=== PATIENT | male | born 1940 | race Caucasian/White ===

== ENCOUNTER 2018-09-02 11:48 | Observation (INO) | payer MEDICARE, OTHER ==
[2018-09-02 12:10] LABS: #Eosinphils 0.1 thou/uL (0.0-0.7); #Lymphocytes 2.3 thou/uL (1.20-3.40); #Monocytes 0.4 thou/uL (0.11-0.59); #Neutrophils 3.3 thou/uL (1.40-6.50); %Basophils 0.3 % (0.0-1.0); %Eosinophils 2.2 % (0.0-10.0); %Neutrophils 53.5 % (42.0-75.0); Hemoglobin 13.4 g/dL (14.0-18.0); Mean Corpuscular HGB CONC 33.5 g/dL (32.0-36.0); Mean Corpuscular Hemoglobin 31.1 pg (27.0-31.0); Mean Platelet Volume 6.7 fL (7.4-10.4); Platelet Count 217 thou/uL (130-400); RBC Distribution Width 12.1 % (11.5-14.5); White Blood Cell (WBC) Count 6.2 thou/uL (4.8-10.8)
--- NOTE | 2018-09-02 12:19 | RAD ---
RADIOGRAPH CHEST 1 VIEW: DATE: 09/02/2018 HISTORY: 77-year-old male with chest pain FINDINGS: There are no airspace densities, pulmonary edema, pneumothorax, or cardiomegaly. The lateral costophr enic angles are sharp. IMPRESSION: No acute cardiopulmonary findings.
[2018-09-02 12:31] LABS: ALT (SGPT) 18 U/L (8-55); AST (SGOT) 14 U/L (5-34); Albumin 4.6 g/dL (3.4-4.8); Alkaline Phosphatase 91 U/L (40-150); Anion Gap 13 mmol/L (10-20); BUN (Urea Nitrogen) 26 mg/dL (8.4-25.7); Bilirubin, Total 0.7 mg/dL (0.2-1.2); CK (CPK) 126 U/L (30-200); Calc. Creatinine Clearance 0 mL/min (70-130); Calcium 9.6 mg/dL (7.8-10.44); Carbon Dioxide 25 mmol/L (23-31); Chloride 106 mmol/L (98-107); Estimated GFR-MDRD 66; Globulin 2.8 g/dL (2.4-3.5); Glucose 97 mg/dL (83-110); Lipase 37 U/L (8-78); Potassium 4.5 mmol/L (3.5-5.1); Protein, Total 7.4 g/dL (5.8-8.1); Sodium 139 mmol/L (136-145)
[2018-09-02] MEDS ORDERED: Aspirin Chewable 81 MG TAB ONE (14:49)
[2018-09-02] MEDS ORDERED: Ondansetron PF 4 MG/2 ML Vial IVP PRN (15:43)
[2018-09-02] MEDS ORDERED: Ondansetron ODT 4 MG TAB SL PRN (15:43)
[2018-09-02] MEDS ORDERED: Acetaminophen 325 MG TAB PO PRN (15:43)
[2018-09-02 15:52] VITALS: BMI 24.7
[2018-09-02 16:31] LABS: Troponin I Less than 0.010 ng/mL (< 0.028)
[2018-09-02] MEDS ORDERED: Acetaminophen 500 MG TAB PO PRN (16:42)
[2018-09-02 18:48] LABS: Troponin I Less than 0.010 ng/mL (< 0.028)
--- NOTE | 2018-09-02 19:51 | HP ---
CHIEF COMPLAINT: Chest pain. HISTORY OF PRESENT ILLNESS: Mr. Holbrook is a very pleasant 77-year-old male with past medical history significant for hypertension, hyperlipidemia, coronary artery disease status post stenting of the RCA [place] [address] Madsen, who presented to the hospital with complaints of chest pain. 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 He describes it as a pressure with radiation into both arms. It also seemed to radiate into the neck. Associated symptoms included lightheadedness. The patient was outside and was known to already be sweating profusely. This discomfort lasted for about 15 minutes. His drove him to the nearest fireconneaut for evaluation. They performed an EKG, but recommended evaluation in the emergency department. The patient presented to the [facility] for further evaluation. On arrival to our facility, he had an EKG, which showed an incomplete right bundle-branch block. This was a known finding. His first two troponins have been negative. His chest pain has completely resolved. He is resting comfortably in his room with family around, eating dinner. REVIEW OF SYSTEMS: A 12-point review of systems performed and is negative except that stated above. PAST MEDICAL HISTORY: Coronary artery disease status post stent in 2008, hypertension, hyperlipidemia, history of esophageal stricture status post dilatation by Dr. Faby harvey, GERD, nephrolithiasis. PAST SURGICAL HISTORY: Status post stenting of the RCA in October of [address] Madsen, status post ORIF after right femoral fracture. Appendectomy. Esophageal dilatation. ALLERGIES: TERA INHIBITOR, WHICH CAUSES COUGH; AND TRICOR. HOME MEDICATIONS: 1. Irbesartan 300 mg one tablet p.o. q.a.m. 2. Levothyroxine 125 mcg one daily. 3. Omeprazole 20 mg p.o. b.i.d. 4. Crestor 40 mg one p.o. q.p.m. SOCIAL HISTORY: The patient lives at home with his . He is quite active. 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 He has a remote history of smoking. He denies any alcohol or illicit drug use. FAMILY HISTORY: Noncontributory. PHYSICAL EXAMINATION: VITAL SIGNS: Blood pressure 152/81, pulse is 55, O2 saturation is 100% on room air, and respirations 12. GENERAL: This is a well-appearing gentleman, resting in the bed. No acute distress. HEENT: Head is atraumatic and normocephalic. Mucous membranes are moist. NECK: Supple. No lymphadenopathy. Trachea is midline. CV: S1 and S2, regular rhythm, mildly bradycardic. LUNGS: Regular respiratory rate and pattern. Clear to auscultation bilaterally. ABDOMEN: Positive bowel sounds. Soft, nontender. EXTREMITIES: No edema. SKIN: Warm and dry. No rashes. NEUROLOGIC: Cranial nerves 2 through 12 are grossly intact. The patient is nonfocal. LABORATORY DATA: WBC 6.2, hemoglobin 13.4, hematocrit 39.9, platelet is 217. Sodium 139, potassium 4.5, chloride 106, BUN 26, creatinine 1.08. AST, ALT, alkaline phosphatase, all within normal limits. Creatine kinase 126. Troponin is negative x2. Lipase is 37. ASSESSMENT: 1. Chest pain consistent with angina, resolved, troponin negative x2. 2. Coronary artery disease, status post stent of the RCA [place] [address] Madsen. 3. Hypothyroidism. 4. Hypertension. 5. Hyperlipidemia. 6. Gastroesophageal reflux disease. PLAN: At this time, we will risk stratify the patient with a nuclear stress test. It has been three years since his last nuclear stress test, which was performed in this hospital in 2016. We will start the patient on baby aspirin, which he has not been taking. We will continue his irbesartan and Crestor. Continue his home dose of levothyroxine. We will obtain a fasting lipid panel in the morning. Further recommendations based on findings of stress test to be performed tomorrow. Job ID: [id number] [facility]
[2018-09-02] MEDS ORDERED: Rosuvastatin 20 MG TAB PO SCH (21:00)
[2018-09-03 05:33] LABS: Cardiac Risk 3.9 (Less than 4.5)
[2018-09-03] MEDS ORDERED: Levothyroxine Sodium 125 MCG TAB PO SCH (06:00)
[2018-09-03] MEDS ORDERED: Prevnar 13-Val Conj/PF 0.5 ML SYRINGE IM ONE (09:00)
[2018-09-03] MEDS ORDERED: Aspirin Chewable 81 MG TAB PO SCH (09:00)
--- NOTE | 2018-09-03 11:45 | NM ---
NUCLEAR MEDICINE CARDIAC MYOCARDIAL PERFUSION SPECT EJECTION FRACTION STUDY WALL MOTION CINE: DATE: 09/03/2018 HISTORY: 77 year old male with hypertension, coronary artery disease, dyslipidemia, and tobacco use, presents with acute chest pain. TECHNIQUE: Number of days: 1 Rest study: Technetium 99m-sestamibi (Cardiolite) dose: 10.1 mCi Exercise stress: Treadmill Stress study: Technetium 99m-sestamibi (Cardiolite) dose: 29.0 mCi FINDINGS: CARDIAC (MYOCARDIAL PERFUSION) SPECT Distribution of sestamibi is homogeneous throughout the left ventricle, with no fixed or reversible m yocardial perfusion defects. EJECTION FRACTION STUDY Left ventricular EF = 72 % WALL MOTION CINE The left ventricular wall motion is normal. There is normal systolic wall thickening. IMPRESSION: Normal.
[2018-09-03 12:22] VITALS: BP 134/81; TEMP 98.5
--- NOTE | 2018-09-03 12:57 | STRESS ---
Acquisition Time: 2018-09-03 09:59:34 Total Exercise Time: 00:08:00 Test Indications: CHEST PAIN Medications: Protocol: JOSSUE Max HR: 122 BPM 84% of Pred: 144 BPM Max BP: 154/080 mmHG Max Work Load: 10.1 METS THE PATIENT EXERCISED ON THE TREADMILL FOR 8:00 ON THE JOSSUE PROTOCOLPEAK HEART JBPZ=033 BPM AND [employer] HEART RATE = [address] DEPRESSION. HE DID NOT DEVELOP CHEST PAIN. NEGATIVE EXERCISE TREADMILL TEST. AWAIT NUCLEAR IMAGES FOR DEFINITIVE DIAGNOSIS. Confirmed by LEXIE REEVES ([id number]), market editor LEONOR FORREST ([id number]) on 09/03/2018 12:56:50 PM Referred By: Confirmed By:LEXIE REEVES
--- NOTE | 2018-09-04 00:48 | DIS ---
DATE OF ADMISSION: 09/02/2018 DATE OF DISCHARGE: 09/03/2018 CHIEF COMPLAINT ON ADMISSION: Chest pain. DISCHARGE DIAGNOSES: 1. Chest pain, acute coronary syndrome ruled out, MPI negative for reversible ischemia and showing normal EF. 2. Coronary artery disease status post stent to the RCA [place] [address] Madsen. 3. Hypothyroidism. 4. Hypertension. 5. Hyperlipidemia. 6. Gastroesophageal reflux disease. BRIEF HOSPITAL COURSE: The patient is a very pleasant 77-year-old gentleman with past medical history significant for coronary artery disease status post stenting of the RCA with Dr. Madsen in 2008, hypertension, hyperlipidemia, who presented to the hospital with another episode of chest pain. 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 He was out in the heat, already sweating profusely when his chest discomfort began. He describes it as a pressure, which radiated into both arms. He did have some lightheadedness. He presented to the emergency department for further workup and treatment. EKG showed incomplete right bundle-branch block which is known finding for the patient. His serial troponins were negative x3. He underwent nuclear stress test, which showed normal left ventricular systolic function, no evidence of reversible ischemia. His presenting symptoms have completely resolved. He feels well today. He admits to not taking aspirin daily. Laboratory data also is significant for mildly elevated triglycerides in the 160s. DISCHARGE DISPOSITION: Home. DISCHARGE CONDITION: Stable. FOLLOWUP AND DISCHARGE INSTRUCTIONS: I have advised the patient that he needs to follow up somewhat regularly with his chief payroll clerk, Dr. Madsen, given his known history of disease. The patient will continue his statin and I will initiate some fish oil for him given his mildly elevated triglycerides. I have advised him to take his aspirin daily. He will continue risk factor modification and follow up with his primary care physician, Dr. Bowman, as well. Workup here has been negative, but I have advised the patient given his history that if his symptoms do return, he would need to return back to the emergency room or call his chief payroll clerk if the symptoms are not severe. All questions answered. The patient will be discharged home in good condition today. Job ID: [id number]
--- NOTE | 2018-09-09 11:03 | EKG ---
Test Reason : Blood Pressure : / mmHG Vent. Rate : 067 BPM Atrial Rate : 067 BPM P-R Int : 146 ms QRS Dur : 128 ms QT Int : 400 ms P-R-T Axes : 052 084 045 degrees QTc Int : 422 ms Normal sinus rhythm Right bundle branch block Abnormal ECG Confirmed by ADI HOOD ([id number]), editor magazine TYRONE ELLIS ([id number]) on 09/09/2018 11:03:26 AM Referred By: Confirmed By:ADI HOOD
== END 2018-09-03 12:53 | disposition home or self-care (01) ==
LOC: ERS 11:48 → 2SW 13:59
PROVIDERS: ADMIT Internal Medicine; ATTEND Internal Medicine
DX: R07.89 Other chest pain (principal); R61 Generalized hyperhidrosis; R42 Dizziness and giddiness; I10 Essential (primary) hypertension; E78.5 Hyperlipidemia, unspecified; I25.10 Atherosclerotic heart disease of native coronary artery without angina pectoris; E03.9 Hypothyroidism, unspecified; K21.9 Gastro-esophageal reflux disease without esophagitis; Z87.891 Personal history of nicotine dependence; Z79.899 Other long term (current) drug therapy; Z88.0 Allergy status to penicillin; Z88.8 Allergy status to other drugs, medicaments and biological substances; Z91.041 Radiographic dye allergy status; Z95.5 Presence of coronary angioplasty implant and graft
CPT/HCPCS: 36415; 71045; 78452; 80053; 80061; 82550; 83690; 84484; 85025; 93005; 93017; 94760; A9500; G0378

== ENCOUNTER 2019-08-06 11:57 | Emergency (ER) | payer MEDICARE, OTHER ==
[2019-08-06 12:55] LABS: #Basophils 0.2 thou/uL (0.0-0.2); #Lymphocytes 1.2 thou/uL (1.20-3.40); #Monocytes 0.8 thou/uL (0.11-0.59); #Neutrophils 5.7 thou/uL (1.40-6.50); %Basophils 2.2 % (0.0-1.0); %Eosinophils 0.6 % (0.0-10.0); %Lymphocytes 15.3 % (21.0-51.0); %Monocytes 10.2 % (0.0-10.0); %Neutrophils 71.7 % (42.0-75.0); Hemoglobin 12.3 g/dL (14.0-18.0); Mean Corpuscular HGB CONC 34.7 g/dL (32.0-36.0); Mean Corpuscular Hemoglobin 32.1 pg (27.0-31.0); Mean Corpuscular Volume 92.4 fL (78.0-98.0); Platelet Count 226 thou/uL (130-400); RBC Distribution Width 11.8 % (11.5-14.5); Red Blood Cell (RBC) Count 3.83 mill/uL (4.70-6.10); White Blood Cell (WBC) Count 7.9 thou/uL (4.8-10.8)
[2019-08-06 13:42] LABS: ALT (SGPT) 16 U/L (8-55); AST (SGOT) 15 U/L (5-34); Albumin 4.1 g/dL (3.4-4.8); Alkaline Phosphatase 107 U/L (40-110); Anion Gap 12 mmol/L (10-20); BUN (Urea Nitrogen) 28 mg/dL (8.4-25.7); Bilirubin, Total 0.9 mg/dL (0.2-1.2); Calc. Creatinine Clearance 0 mL/min (70-130); Calcium 9.3 mg/dL (7.8-10.44); Carbon Dioxide 24 mmol/L (23-31); Chloride 102 mmol/L (98-107); Estimated GFR-MDRD 55; Globulin 3.3 g/dL (2.4-3.5); Glucose 113 mg/dL (83-110); Potassium 4.8 mmol/L (3.5-5.1); Protein, Total 7.4 g/dL (5.8-8.1); Sodium 133 mmol/L (136-145)
[2019-08-06 13:55] LABS: Bacteria/HPF 2+ HPF (None Seen); Bilirubin Negative (Negative); Blood, Urine 1+ (Negative); Clarity Turbid (Clear); Glucose, Urine (Dipstick) Normal (Negative); Leukocyte 500 Leu/uL (Negative); Nitrite Negative (Negative); Protein, Urine (Dipstick) 70 mg/dL (Neg-Trace); RBC/HPF 0-3 HPF (0-3); Squamous Epithelial 0-3 HPF (0-3); WBC/HPF Greater than 50 HPF (0-3)
== END 2019-08-06 14:25 | disposition home or self-care (01) ==
LOC: ERS 11:57
DX: N30.90 Cystitis, unspecified without hematuria (principal); I25.10 Atherosclerotic heart disease of native coronary artery without angina pectoris; E78.5 Hyperlipidemia, unspecified; E78.00 Pure hypercholesterolemia, unspecified; I10 Essential (primary) hypertension; Z79.899 Other long term (current) drug therapy
CPT/HCPCS: 36415; 80053; 81003; 81015; 83605; 85025; 87040; 87077; 87086; 87186; 99283

== ENCOUNTER 2020-12-10 09:19 | Outpatient (CLI) | payer OTHER ==
[2020-12-11] MEDS ORDERED: Iopamidol 370 76% 100 ML VIAL ONE (15:51)
== END 2020-12-10 09:20 | disposition home or self-care (01) ==
LOC: CT 09:19
PROVIDERS: ATTEND Internal Medicine Gastroenterology
DX: R07.0 Pain in throat (principal); J35.1 Hypertrophy of tonsils
CPT/HCPCS: 70491; Q9967

== ENCOUNTER 2023-01-03 05:44 | Day surgery (SDC) | payer MEDICARE ==
[2022-12-31 11:48] VITALS: BMI 24.3
[2023-01-03] MEDS ORDERED: Bacitracin Zinc Ointment 30 gm TUBE ONE (06:45)
[2023-01-03] MEDS ORDERED: Bupivacaine 0.25% HCL 30 ML VIAL ONE (06:45)
[2023-01-03] MEDS ORDERED: EPINEPHrine 1 MG/ML VIAL ONE (06:45)
[2023-01-03 06:46] LABS: #Eosinphils 0.2 thou/uL (0.0-0.7); #Monocytes 0.4 thou/uL (0.11-0.59); #Neutrophils 2.2 thou/uL (1.40-6.50); %Basophils 0.7 % (0.0-1.0); %Eosinophils 3.8 % (0.0-10.0); %Lymphocytes 37.8 % (21.0-51.0); %Monocytes 8.7 % (0.0-10.0); Hematocrit 38.7 % (42.0-52.0); Hemoglobin 12.5 g/dL (14.0-18.0); Mean Corpuscular HGB CONC 32.3 g/dL (32.0-36.0); Mean Corpuscular Hemoglobin 30.2 pg (27.0-31.0); Mean Corpuscular Volume 93.5 fl (78.0-98.0); Mean Platelet Volume 9.3 fL (7.4-10.4); Platelet Count 174 10x3/uL (130-400); RBC Distribution Width 13.2 % (11.5-14.5); Red Blood Cell (RBC) Count 4.14 mill/uL (4.70-6.10); White Blood Cell (WBC) Count 4.5 10x3/uL (4.8-10.8)
[2023-01-03] MEDS ORDERED: Heparin 5,000 UNITS/ML VIAL ONE (06:51)
[2023-01-03] MEDS ORDERED: SUGAMMADEX SODIUM 200 MG/2 ML VIAL ONE (07:03)
[2023-01-03] MEDS ORDERED: fentaNYL PF 100 MCG/2 ML SYRINGE ONE (07:04)
[2023-01-03 07:12] LABS: Anion Gap 11 mmol/L (10-20); BUN (Urea Nitrogen) 22 mg/dL (8.4-25.7); Calc. Creatinine Clearance 54 mL/min (70-130); Calcium 9.5 mg/dL (7.8-10.44); Carbon Dioxide 26 mmol/L (23-31); Chloride 107 mmol/L (98-107); Estimated GFR 63; Glucose 92 mg/dL (83-110); Potassium 4.6 mmol/L (3.5-5.1); Sodium 139 mmol/L (136-145)
[2023-01-03] MEDS ORDERED: Clindamycin/D5W 900 mg/50 ml Premix Bag ONE (07:45)
[2023-01-03] MEDS ORDERED: ePHEDrine Sulfate 50 MG/10 ML VIAL ONE (07:49)
[2023-01-03] MEDS ORDERED: Lidocaine 1% PF 5 ML VIAL ONE (07:49)
[2023-01-03] MEDS ORDERED: PROPOFOL 200 MG/20 ML VIAL ONE (07:49)
[2023-01-03] MEDS ORDERED: Dexamethasone 20 MG/5 ML VIAL ONE (07:49)
[2023-01-03] MEDS ORDERED: Ondansetron PF 4 MG/2 ML Vial ONE (07:49)
[2023-01-03] MEDS ORDERED: PHENYLEPHRINE-NS 100 MCG/ML 10 ML SYRINGE ONE (07:49)
== END 2023-01-03 12:30 | disposition home or self-care (01) ==
LOC: SDC 05:44
PROVIDERS: ATTEND Plastic Surgery
PROC: 09BK0ZZ Excision of Nasal Mucosa and Soft Tissue, Open Approach (ICD-10-PCS; principal; 2023-01-03)
PROC: 0HB1XZZ Excision of Face Skin, External Approach (ICD-10-PCS; 2023-01-03)
DX: C44.319 Basal cell carcinoma of skin of other parts of face (principal); C44.311 Basal cell carcinoma of skin of nose; I10 Essential (primary) hypertension; Z88.0 Allergy status to penicillin; Z88.8 Allergy status to other drugs, medicaments and biological substances; Z91.041 Radiographic dye allergy status
CPT/HCPCS: 11642 ×2; 11643; 15731; 80048; 85025; 93005; J0171; 88305; 88331; 88332; 93010; J1100; J1644; J2405; J2704; J3490; S0020

== ENCOUNTER 2025-01-07 12:11 | Outpatient (CLI) | payer MEDICARE, OTHER ==
[2025-01-07 13:28] LABS: #Basophils 0.03 10x3/uL (0.0-0.2); #Eosinophils 0.22 10x3/uL (0.0-0.7); #Monocytes 0.52 10x3/uL (0.11-0.59); #Neutrophils 3.02 10x3/uL (1.40-6.50); %Basophils 0.5 % (0.0-1.0); %Eosinophils 3.5 % (0.0-10.0); %Lymphocytes 39.5 % (21.0-51.0); %Monocytes 8.3 % (0.0-10.0); %Neutrophils 48.0 % (42.0-75.0); Hematocrit 38.6 % (42.0-52.0); Hemoglobin 12.8 g/dL (14.0-18.0); Mean Corpuscular Hemoglobin 30.5 pg (27.0-31.0); Mean Corpuscular Volume 92.1 fL (78.0-98.0); Platelet Count 201 10x3/uL (130-400); Red Blood Cell (RBC) Count 4.19 mill/uL (4.70-6.10); White Blood Cell (WBC) Count 6.28 10x3/uL (4.8-10.8)
[2025-01-07 13:32] LABS: Bacteria/HPF None Seen HPF (None Seen); Glucose, Urine (Dipstick) Normal (Negative); Leukocyte Negative Leu/uL (Negative); Protein, Urine (Dipstick) Negative (Neg-Trace); RBC/HPF 0-3 HPF (0-3); Specific Gravity, Urine 1.017 (1.002-1.036); WBC/HPF 0-3 HPF (0-3)
[2025-01-07 13:46] LABS: PTT 31.7 sec (22.9-36.1)
[2025-01-07 13:47] LABS: INR-International Normal Ratio 1.0; Prothrombin Time 13.5 sec (12.0-14.7)
[2025-01-07 14:03] LABS: Anion Gap 14 mmol/L (10-20); BUN (Urea Nitrogen) 17 mg/dL (8.4-25.7); Calc. Creatinine Clearance 0 mL/min (70-130); Calcium 9.5 mg/dL (7.8-10.44); Carbon Dioxide 25 mmol/L (23-31); Chloride 106 mmol/L (98-107); Glucose 81 mg/dL (83-110); Potassium 4.7 mmol/L (3.5-5.1); Sodium 140 mmol/L (136-145)
== END 2025-01-07 12:12 | disposition home or self-care (01) ==
LOC: LABBT 12:11
PROVIDERS: ATTEND Urology
DX: Z01.818 Encounter for other preprocedural examination (principal); N40.1 Benign prostatic hyperplasia with lower urinary tract symptoms; R39.14 Feeling of incomplete bladder emptying; Z95.5 Presence of coronary angioplasty implant and graft
CPT/HCPCS: 80048; 81001; 85025; 85610; 85730; 87086; 93005; 93010

== ENCOUNTER 2025-01-18 06:27 | Day surgery (SDC) | payer MEDICARE ==
[2025-01-07 12:32] VITALS: BMI 24.3
[2025-01-18] MEDS ORDERED: LevoFLOXacin D5W 500 mg (100 mL) BAG ONE (07:43)
[2025-01-18] MEDS ORDERED: NEOSTIGMINE 3 MG/3 ML SYRINGE ONE (09:11)
[2025-01-18] MEDS ORDERED: Glycopyrrolate 0.2 MG/ML 5 ML SYRINGE ONE ×2 (09:11)
[2025-01-18] MEDS ORDERED: Rocuronium Bromide 10 MG/ML (10ML VIAL) ONE (09:11)
[2025-01-18] MEDS ORDERED: PROPOFOL 200 MG/20 ML VIAL ONE (09:11)
[2025-01-18] MEDS ORDERED: Ondansetron PF 4 MG/2 ML Vial ONE (09:15)
[2025-01-18] MEDS ORDERED: Oxybutynin 5 MG TAB ONE (10:52)
== END 2025-01-18 14:07 | disposition home or self-care (01) ==
LOC: SDC 06:27
PROVIDERS: ATTEND Urology
PROC: 0VT08ZZ Resection of Prostate, Via Natural or Artificial Opening Endoscopic (ICD-10-PCS; principal; 2025-01-18)
DX: N40.1 Benign prostatic hyperplasia with lower urinary tract symptoms (principal); N13.8 Other obstructive and reflux uropathy; I10 Essential (primary) hypertension; I25.10 Atherosclerotic heart disease of native coronary artery without angina pectoris; E78.5 Hyperlipidemia, unspecified; E03.9 Hypothyroidism, unspecified; K21.9 Gastro-esophageal reflux disease without esophagitis; Z95.5 Presence of coronary angioplasty implant and graft; Z96.1 Presence of intraocular lens; Z90.49 Acquired absence of other specified parts of digestive tract; Z91.041 Radiographic dye allergy status; Z88.0 Allergy status to penicillin; Z88.8 Allergy status to other drugs, medicaments and biological substances; Z79.82 Long term (current) use of aspirin; Z79.899 Other long term (current) drug therapy
CPT/HCPCS: 52601; A4333; J1100; J1956; J2405; J2704; J3010; Q0162; 88305